=== PATIENT | female | born 1950 | race Caucasian/White ===

== ENCOUNTER 2021-11-04 15:13 | Outpatient (CLI) | payer OTHER, SELFPAY ==
--- NOTE | 2021-11-04 15:36 | CT_ITS ---
STUDY: CT Lower Extremity W/O Contrast Injection 11/04/2021 6:42 PM REASON FOR EXAM: Female, 71 years old. VARUS DEFORMITY, L KNEE Individualized dose optimization techniques were used for this CT. TECHNIQUE: VARUS DEFORMITY, L KNEE MIRTA protocol COMPARISON: No priors for comparison. FINDINGS: A tiffany was placed along the lateral aspect of the patient''s lower extremity. CT scans were obtained over the hip, knee, and ankle, separately. IMPRESSION: The images will be utilized by the surgical prosthesis puddler helper for measurement and planning purposes.. Electronically Signed: Jenaro Duggan MD at 18:42 EST , CT/Extremity Lower without Contra
== END 2021-11-04 23:59 | disposition home or self-care (01) ==
LOC: CT 15:26
PROVIDERS: Referring Provider Orthopaedic Surgery; Visit Provider Orthopaedic Surgery
DX: M21.162 Varus deformity, not elsewhere classified, left knee (principal)
CPT/HCPCS: 73700